=== PATIENT | female | born 1995 | race Caucasian/White ===

== ENCOUNTER 2018-05-11 15:10 | Emergency (ER) | payer OTHER, BC ==
[2018-05-11 15:23] VITALS: BMI 29.2
[2018-05-11] MEDS ORDERED: KETOROLAC TROMETHAMINE 30 MG/1 ML VIAL IVPUSH ONE (16:06)
[2018-05-11] MEDS ORDERED: SODIUM CHLORIDE 1,000 ML IV STA (16:06)
[2018-05-11] MEDS ORDERED: ONDANSETRON 4 MG/2 ML VIAL ONE (16:10)
[2018-05-11] MEDS ORDERED: KETOROLAC TROMETHAMINE 30 MG/1 ML VIAL ONE (16:10)
[2018-05-11] MEDS ORDERED: ONDANSETRON 4 MG/2 ML VIAL IVPUSH ONE (16:12)
[2018-05-11] MEDS ORDERED: FAMOTIDINE 20 MG/50 ML IVPB 20 MG/50 ML MG IVPB ONE (16:12)
--- NOTE | 2018-05-11 16:19 | PDOC ---
History of Present Illness - General Chief Complaint: Pain, Acute Stated Complaint: VOMITING Time Seen by Provider: 05/11/18 15:45 History Source: Patient - History of Present Illness Timing/Duration: reports: constant Quality: reports: severe Abdominal Pain Onset Location: reports: epigastric Pain Radiation: reports: back Past History - Past Medical History Allergies/Adverse Reactions: Allergies Allergy/AdvReac Type Severity Reaction Status Date / Time dexamethasone [From Decadron] Allergy Verified 05/11/18 15:23 Home Medications: Ambulatory Orders Acetaminophen [Tylenol] 650 mg PO Q6H #30 capsule 05/11/18 Ondansetron HCl [Zofran] 4 mg PO Q6H #12 tablet 05/11/18 Asthma: Yes COPD: No - Suicide/Smoking/Psychosocial Hx Smoking History: Never smoked Hx Alcohol Use: Yes (OCCASIONALLY) Drug/Substance Use Hx: No Review of Systems - Review of Systems Constitutional: Yes: Malaise, Weakness. No: Chills, Fever ABD/GI: Yes: Diarrhea, Nausea, Vomiting, Abdominal cramping. No: Blood Streaked Bowels, Rectal Bleeding, Tarry Stools : No: Dysuria *Physical Exam - Vital Signs Last Vital Signs Temp Pulse Resp BP Pulse Ox 98.4 F 101 H 18 116/61 99 05/11/18 15:21 05/11/18 15:21 05/11/18 15:21 05/11/18 15:21 05/11/18 15:21 - Physical Exam General Appearance: Yes: Appropriately Dressed, Severe Distress HEENT: positive: Normal Voice Neck: positive: Supple Respiratory/Chest: negative: Respiratory Distress Gastrointestinal/Abdominal: positive: Tender (to eoigastrium only, NT over mcburneys), Soft Musculoskeletal: negative: CVA Tenderness Integumentary: positive: Dry, Warm Neurologic: positive: Fully Oriented, Alert, Normal Mood/Affect Moderate Sedation - Procedure Monitoring Vital Signs: Procedure Monitoring Vital Signs Temperature 98.4 F 05/11/18 15:21 Pulse Rate 101 H 05/11/18 15:21 Respiratory Rate 18 05/11/18 15:21 Blood Pressure 116/61 05/11/18 15:21 O2 Sat by Pulse Oximetry (%) 99 05/11/18 15:21 ED Treatment Course - LABORATORY CBC & Chemistry Diagram: 05/11/18 16:20 05/11/18 16:20 Medical Decision Making - Medical Decision Making 05/11/18 16:13 23 yo F, renal colic, currently being w/u for possible IBD (2/2 1 yr of diarrhea and hematochezia-has fmhx of UC), missed first colonoscopy yesterday, here w/ severe abd pain w/ n/v/d/ since 5am today. Pt reports pain to epigastrium mostly radiating to mid and lower back w/ numerous e/o NB, NB vomitus and NB, watery diarrhea. No unusual food, sick contacts, travel or abx use. Does not feel like her renal colic See exam Possible gastritis vs gastroenteritis, less likely biliary, pancreatitis or appy -pain control -zofran -IVF -labs -?CT 05/11/18 18:29 Labs only remarkable for mild leukocytosis to 13. Pt reports significant improvement w/ meds and appears well at this time. Abd benign w/ no tenderness on repeat assessment and pt able to shay po. Stable for discharge at this time w / supportive tx. Strict return precautions given *DC/Admit/Observation/Transfer Diagnosis at time of Disposition: Nausea & vomiting Qualifiers: Vomiting type: unspecified Vomiting Intractability: non-intractable Qualified Code(s): R11.2 - Nausea with vomiting, unspecified Diarrhea Qualifiers: Diarrhea type: unspecified type Qualified Code(s): R19.7 - Diarrhea, unspecified Abdominal pain Qualifiers: Abdominal location: epigastric Qualified Code(s): R10.13 - Epigastric pain - Discharge Dispostion Disposition: HOME Condition at time of disposition: Improved - Prescriptions Prescriptions: Acetaminophen [Tylenol] 650 mg PO Q6H #30 capsule Ondansetron HCl [Zofran] 4 mg PO Q6H #12 tablet - Referrals - Patient Instructions Printed Discharge Instructions: DI for Viral Gastroenteritis -- Adult Additional Instructions: The cause of your symptoms might be a viral gastroenteritis. Please rest, drink plenty of fluids and tolerate food as you are aable to There was no signs of an appendicitis based on your exam. You can take zofran as needed for vomiting and tylenol as needed for pain. If symptoms worsen and/or you develop pain over your right lower abdomen as discussed, you need to return to ED at that time for CAT scan of your appendix - Post Discharge Activity
[2018-05-11 16:27] LABS: BASO % 0.2 % (0-2.0); HEMATOCRIT 39.9 % (32.4-45.2); HEMOGLOBIN 13.8 GM/dL (10.7-15.3); LYMPH % 5.6 % (8-40); MCH 30.3 pg (25.7-33.7); MCHC 34.5 g/dl (32.0-36.0); MEAN CELL VOLUME 87.9 fl (80-96); MEAN PLT VOLUME 7.6 fl (7.5-11.1); MONO % 5.6 % (3.8-10.2); NEUT % 86.6 % (42.8-82.8); PLATELET COUNT 268 K/MM3 (134-434); RBC 4.54 M/mm3 (3.60-5.2); RDW 13.8 % (11.6-15.6); WHITE BLOOD COUNT 13.1 K/mm3 (4.0-10.0)
[2018-05-11 17:11] LABS: ALBUMIN 4.1 g/dl (3.4-5.0); ALK PHOS 75 U/L (45-117); ANION GAP 10 MMOL/L (8-16); BILIRUBIN,TOTAL 0.9 mg/dL (0.2-1); BLOOD UREA NITROGEN 16 mg/dL (7-18); CALCIUM 8.6 mg/dL (8.5-10.1); CHLORIDE 102 mmol/L (98-107); CO2 25 mmol/L (21-32); CREATININE 0.6 mg/dL (0.55-1.3); GLUCOSE,RANDOM 107 mg/dL (74-106); LIPASE 88 U/L (73-393); POTASSIUM 3.5 mmol/L (3.5-5.1); SGOT/AST 11 U/L (15-37); SGPT/ALT 18 U/L (13-61); SODIUM 137 mmol/L (136-145)
[2018-05-11 18:39] VITALS: PULSE 100; TEMP 98.2
[2018-05-11 18:56] VITALS: BP 102/58
== END 2018-05-11 19:03 | disposition home or self-care (01) ==
LOC: JER 15:10
PROC: 3E033GC Introduction of Other Therapeutic Substance into Peripheral Vein, Percutaneous Approach (ICD-10-PCS; principal; 2018-05-11)
PROC: 3E0333Z Introduction of Anti-inflammatory into Peripheral Vein, Percutaneous Approach (ICD-10-PCS; 2018-05-11)
PROC: 3E033GC Introduction of Other Therapeutic Substance into Peripheral Vein, Percutaneous Approach (ICD-10-PCS; 2018-05-11)
DX: A08.4 Viral intestinal infection, unspecified (principal); B97.89 Other viral agents as the cause of diseases classified elsewhere
CPT/HCPCS: 36415; 80053; 83690; 84703; 85025; 99282-25; J7030